=== PATIENT | female | born 1940 | race Caucasian/White ===

== ENCOUNTER 2023-03-28 20:40 | Inpatient (IN) | payer MEDICARE, BC ==
[2023-03-28] MEDS ORDERED: Acetaminophen 325 MG Tab PO PRN (22:04)
[2023-03-28] MEDS ORDERED: Morphine 2 MG/ML SYRINGE IVPUSH PRN (22:04)
[2023-03-28] MEDS ORDERED: LORazepam 2 MG/ML SDV IV PRN (22:04)
[2023-03-28] MEDS ORDERED: Naloxone 0.4 MG/ML SDV IVPUSH PRN (22:04)
[2023-03-28] MEDS ORDERED: Bisacodyl 5 MG Tab PO PRN (22:04)
[2023-03-28] MEDS ORDERED: Docusate Sodium 100 MG Cap PO PRN (22:04)
[2023-03-28] MEDS ORDERED: Sodium Chloride 0.9% 10 ML Syringe FLUSH PRN (22:04)
[2023-03-28] MEDS ORDERED: Promethazine 25 MG Tab PO PRN (22:04)
[2023-03-28] MEDS ORDERED: oxyCODONE 5 MG Tab PO PRN (22:04)
[2023-03-28] MEDS ORDERED: Pantoprazole 40 MG Vial IV SCH (22:15)
[2023-03-28] MEDS ORDERED: Metolazone 2.5 MG Tab PO PRN (22:18)
[2023-03-28] MEDS ORDERED: traMADol 50 MG Tab PO PRN (22:18)
[2023-03-28 22:52] LABS: APPEARANCE,URINE CLOUDY (CLEAR); BILIRUBIN,URINE NEGATIVE (NEGATIVE); COLOR,URINE YELLOW (YELLOW); GLUCOSE,URINE NEGATIVE (NEGATIVE); KETONES,URINE NEGATIVE (NEGATIVE); LEUKOCYTE ESTERASE,URINE LARGE (NEGATIVE); NITRITE,URINE NEGATIVE (NEGATIVE); OCCULT BLOOD,URINE SMALL (NEGATIVE); PROTEIN,URINE 30 mg/dL (NEGATIVE); UROBILINOGEN,URINE 0.2 EU/dL (0.2-1.0)
[2023-03-28 22:58] LABS: AMORPHOUS SEDIMENT,URINE NOT SEEN; BACTERIA,URINE MANY; EPITHELIAL CELLS,URINE MODERATE; MUCUS,URINE FEW; WBC,URINE >100 (0-5)
[2023-03-28] MEDS ORDERED: Potassium Chloride 20 MEQ Tab.ER PO ONE (23:17)
[2023-03-28] MEDS ORDERED: Enoxaparin 40 MG/0.4 ML Syringe SUBCUT ONE (23:30)
[2023-03-28] MEDS ORDERED: Nitroglycerin 0.4 MG Tab.SL SL PRN (23:30)
[2023-03-28] MEDS ORDERED: Nitroglycerin 0.4 MG Tab.SL ONE (23:32)
[2023-03-28] MEDS ORDERED: cefTRIAXone 1 GM in Sodium Chloride 0.9% 50 ML IV SCH (23:45)
[2023-03-28] MEDS: Melatonin 3 MG Tab PO SCH (23:58)
[2023-03-28] MEDS: hydrOXYzine HCl 10 MG Tab PO PRN (23:59)
[2023-03-29 05:41] LABS: BASOPHILS ABSOLUTE AUTO 0.04 K/uL (0.00-0.10); BASOPHILS PERCENT AUTO 0.5 % (0.1-1.3); EOSINOPHILS ABSOLUTE AUTO 0.53 K/uL (0.00-0.40); EOSINOPHILS PERCENT AUTO 6.7 % (0.0-5.4); HEMATOCRIT 31.8 % (34.3-46.0); HEMOGLOBIN 9.7 g/dL (11.2-15.5); IMMATURE GRAN ABSOLUTE AUTO 0.08 K/uL (0.00-0.23); LYMPHOCYTES ABSOLUTE AUTO 1.09 K/uL (0.8-3.3); LYMPHOCYTES PERCENT AUTO 13.8 % (11.4-47.7); MEAN CORPUSCULAR HEMOGLOBIN 26.6 pg (31.6-35.5); MEAN CORPUSCULAR HGB CONC 30.5 g/dL (31.6-35.5); MEAN CORPUSCULAR VOLUME 87.1 fL (81.4-99.0); MONOCYTES ABSOLUTE AUTO 0.63 K/uL (0.20-0.90); NEUTROPHILS ABSOLUTE AUTO 5.54 K/uL (1.0-7.6); PLATELET COUNT,PLT 186 K/uL (130-375); RED BLOOD CELL COUNT 3.65 M/uL (3.77-5.24); WHITE BLOOD CELL COUNT,WBC 7.9 K/uL (3.2-11.0)
[2023-03-29 06:04] LABS: CALCIUM 8.6 mg/dL (8.5-10.1); CREATININE 1.7 mg/dL (0.6-1.0); EST CRCL DRUG DOSING (CG) 24.3 mL/min; POTASSIUM,K 3.4 mmol/L (3.6-5.2)
[2023-03-29 06:06] LABS: ANION GAP 11.4 mmol/L (5.0-14.0)
[2023-03-29] MEDS ORDERED: Furosemide 40 MG Tab PO SCH (08:00)
[2023-03-29] MEDS: Losartan 25 MG Tab PO SCH (08:49)
[2023-03-29] MEDS: Spironolactone 25 MG Tab PO SCH (08:49)
[2023-03-29] MEDS: Calcium Carbonate/Vitamin D3 1500 MG-400 Units Tab PO SCH (08:49)
[2023-03-29] MEDS: Metoprolol Succinate 50 MG Tab.ER PO SCH (08:53)
[2023-03-29] MEDS: Cyanocobalamin (Vitamin B12) 1,000 MCG Tab PO SCH (08:53)
[2023-03-29] MEDS ORDERED: Potassium Chloride 20 MEQ Tab.ER PO ONE (09:00)
[2023-03-29] MEDS: Primidone 50 MG Tab PO SCH (09:44)
[2023-03-29] MEDS: hydrOXYzine HCl 10 MG Tab PO PRN (13:43)
[2023-03-29] MEDS: Bumetanide 2.5 MG/10 ML MDV IVPUSH SCH (18:27)
[2023-03-29] MEDS: Melatonin 3 MG Tab PO SCH (20:36)
[2023-03-29] MEDS: Enoxaparin 30 MG/0.3 ML Syringe SUBCUT SCH (20:36)
[2023-03-29] MEDS: cefTRIAXone 1 GM in Sodium Chloride 0.9% 50 ML IV SCH (20:36)
[2023-03-29] MEDS: Pantoprazole 40 MG Tab.CR PO SCH (20:36)
[2023-03-29] MEDS ORDERED: Pantoprazole 40 MG Vial IV SCH (21:00)
[2023-03-29] MEDS ORDERED: Enoxaparin 40 MG/0.4 ML Syringe SUBCUT SCH (21:00)
[2023-03-30] MEDS: hydrOXYzine HCl 10 MG Tab PO PRN ×2 (01:53→12:02)
[2023-03-30 05:21] LABS: CALCIUM 8.5 mg/dL (8.5-10.1); CREATININE 1.7 mg/dL (0.6-1.0); EST CRCL DRUG DOSING (CG) 24.3 mL/min; POTASSIUM,K 3.8 mmol/L (3.6-5.2)
[2023-03-30 05:22] LABS: ANION GAP 6.8 mmol/L (5.0-14.0)
[2023-03-30] MEDS: Bumetanide 2.5 MG/10 ML MDV IVPUSH SCH ×2 (06:38→17:37)
[2023-03-30] MEDS: Calcium Carbonate/Vitamin D3 1500 MG-400 Units Tab PO SCH (08:19)
[2023-03-30] MEDS: Cyanocobalamin (Vitamin B12) 1,000 MCG Tab PO SCH (08:19)
[2023-03-30] MEDS: Losartan 25 MG Tab PO SCH (08:19)
[2023-03-30] MEDS: Metoprolol Succinate 50 MG Tab.ER PO SCH (08:20)
[2023-03-30] MEDS: Spironolactone 25 MG Tab PO SCH ×2 (08:20→17:37)
[2023-03-30] MEDS: Primidone 50 MG Tab PO SCH (08:20)
[2023-03-30] MEDS ORDERED: Nystatin Topical Powder 15 GM Bottle TOP SCH (10:15)
[2023-03-30] MEDS: Nystatin Topical Powder 15 GM Bottle TOP SCH ×2 (11:17→20:24)
[2023-03-30] MEDS: Citalopram 10 MG Tab PO SCH (15:46)
[2023-03-30] MEDS ORDERED: Metoprolol Succinate 25 MG Tab.ER PO ONE (16:00)
[2023-03-30] MEDS: Melatonin 3 MG Tab PO SCH (20:23)
[2023-03-30] MEDS: Enoxaparin 30 MG/0.3 ML Syringe SUBCUT SCH (20:23)
[2023-03-30] MEDS: Pantoprazole 40 MG Tab.CR PO SCH (20:23)
[2023-03-30] MEDS: cefTRIAXone 1 GM in Sodium Chloride 0.9% 50 ML IV SCH (20:36)
[2023-03-30] MEDS ORDERED: Albuterol/Ipratropium 3.0-0.5 MG/3 ML Neb Soln NEB PRN (21:20)
[2023-03-31] MEDS: hydrOXYzine HCl 10 MG Tab PO PRN ×2 (01:49→14:52)
[2023-03-31] MEDS ORDERED: hydrOXYzine HCl 25 MG Tab PO STA (02:55)
[2023-03-31] MEDS: Bumetanide 2.5 MG/10 ML MDV IVPUSH SCH (06:04)
[2023-03-31] MEDS: Spironolactone 25 MG Tab PO SCH (06:04)
[2023-03-31 06:43] LABS: CALCIUM 8.7 mg/dL (8.5-10.1); CREATININE 1.7 mg/dL (0.6-1.0); EST CRCL DRUG DOSING (CG) 24.3 mL/min; POTASSIUM,K 3.9 mmol/L (3.6-5.2); T4 FREE 0.71 ng/dL (0.76-1.46); TSH ULTRASENSITIVE 3.382 uIU/mL (0.358-3.740)
[2023-03-31 06:44] LABS: ANION GAP 7.9 mmol/L (5.0-14.0)
[2023-03-31 06:45] LABS: IRON,FE 23 ug/dL (50-170); PERCENT FE SATURATION 7 % (20-55); TOTAL IRON BINDING CAPACITY 342 ug/dl (250-450)
[2023-03-31] MEDS: Primidone 50 MG Tab PO SCH (08:57)
[2023-03-31] MEDS: Metoprolol Succinate 25 MG Tab.ER PO SCH (08:58)
[2023-03-31] MEDS: Losartan 25 MG Tab PO SCH (08:58)
[2023-03-31] MEDS: Cyanocobalamin (Vitamin B12) 1,000 MCG Tab PO SCH (08:59)
[2023-03-31] MEDS: Calcium Carbonate/Vitamin D3 1500 MG-400 Units Tab PO SCH (09:00)
[2023-03-31] MEDS: Nystatin Topical Powder 15 GM Bottle TOP SCH ×2 (09:03→20:32)
[2023-03-31] MEDS: Citalopram 10 MG Tab PO SCH (09:08)
[2023-03-31] MEDS ORDERED: Levothyroxine 50 MCG Tab PO ONE (10:00)
[2023-03-31] MEDS ORDERED: Sodium Ferric Gluconate Cmplex 125 MG in Sodium Chloride 0.9% 100 ML IV ONE (10:30)
[2023-03-31] MEDS ORDERED: Metolazone 2.5 MG Tab PO ONE (14:00)
[2023-03-31] MEDS ORDERED: Bumetanide 1 MG/4 ML MDV IVPUSH ONE (14:30)
[2023-03-31] MEDS: Enoxaparin 30 MG/0.3 ML Syringe SUBCUT SCH (20:32)
[2023-03-31] MEDS: Melatonin 3 MG Tab PO SCH (20:32)
[2023-03-31] MEDS: Pantoprazole 40 MG Tab.CR PO SCH (20:33)
[2023-03-31] MEDS: cefTRIAXone 1 GM in Sodium Chloride 0.9% 50 ML IV SCH (20:33)
[2023-04-01 05:16] LABS: CALCIUM 8.5 mg/dL (8.5-10.1); CREATININE 1.6 mg/dL (0.6-1.0); EST CRCL DRUG DOSING (CG) 25.81 mL/min; POTASSIUM,K 3.5 mmol/L (3.6-5.2)
[2023-04-01 05:18] LABS: ANION GAP 9.5 mmol/L (5.0-14.0)
[2023-04-01] MEDS: Levothyroxine 50 MCG Tab PO SCH (08:05)
[2023-04-01] MEDS ORDERED: Potassium Chloride 20 MEQ Tab.ER PO ONE (09:00)
[2023-04-01] MEDS ORDERED: Metolazone 2.5 MG Tab PO ONE (09:00)
[2023-04-01] MEDS: Citalopram 10 MG Tab PO SCH (09:07)
[2023-04-01] MEDS: Primidone 50 MG Tab PO SCH (09:07)
[2023-04-01] MEDS: Calcium Carbonate/Vitamin D3 1500 MG-400 Units Tab PO SCH (09:07)
[2023-04-01] MEDS: Metoprolol Succinate 25 MG Tab.ER PO SCH (09:07)
[2023-04-01] MEDS: Nystatin Topical Powder 15 GM Bottle TOP SCH ×2 (09:08→20:28)
[2023-04-01] MEDS: Losartan 25 MG Tab PO SCH (09:08)
[2023-04-01] MEDS: Cyanocobalamin (Vitamin B12) 1,000 MCG Tab PO SCH (09:08)
[2023-04-01] MEDS: hydrOXYzine HCl 10 MG Tab PO PRN ×2 (09:19→20:33)
[2023-04-01] MEDS ORDERED: Bumetanide 1 MG/4 ML MDV IVPUSH ONE (09:30)
[2023-04-01] MEDS ORDERED: Sodium Ferric Gluconate Cmplex 125 MG in Sodium Chloride 0.9% 100 ML IV ONE (12:00)
[2023-04-01] MEDS: Bumetanide 2.5 MG/10 ML MDV IVPUSH SCH (18:08)
[2023-04-01] MEDS: Enoxaparin 30 MG/0.3 ML Syringe SUBCUT SCH (20:28)
[2023-04-01] MEDS: Melatonin 3 MG Tab PO SCH (20:28)
[2023-04-01] MEDS: cefTRIAXone 1 GM in Sodium Chloride 0.9% 50 ML IV SCH (20:28)
[2023-04-01] MEDS: Pantoprazole 40 MG Tab.CR PO SCH (20:28)
[2023-04-02] MEDS: Metolazone 2.5 MG Tab PO SCH (08:06)
[2023-04-02] MEDS: Levothyroxine 50 MCG Tab PO SCH (08:06)
[2023-04-02] MEDS: Bumetanide 2.5 MG/10 ML MDV IVPUSH SCH ×2 (08:11→17:49)
[2023-04-02] MEDS: Citalopram 10 MG Tab PO SCH (09:12)
[2023-04-02] MEDS: Nystatin Topical Powder 15 GM Bottle TOP SCH ×2 (09:12→19:59)
[2023-04-02] MEDS: Cyanocobalamin (Vitamin B12) 1,000 MCG Tab PO SCH (09:12)
[2023-04-02] MEDS: Calcium Carbonate/Vitamin D3 1500 MG-400 Units Tab PO SCH (09:13)
[2023-04-02] MEDS: Primidone 50 MG Tab PO SCH (09:13)
[2023-04-02] MEDS: Losartan 25 MG Tab PO SCH (09:15)
[2023-04-02] MEDS: Metoprolol Succinate 25 MG Tab.ER PO SCH (09:16)
[2023-04-02] MEDS: hydrOXYzine HCl 10 MG Tab PO PRN ×2 (09:59→20:00)
[2023-04-02] MEDS: Enoxaparin 30 MG/0.3 ML Syringe SUBCUT SCH (20:00)
[2023-04-02] MEDS: Melatonin 3 MG Tab PO SCH (20:01)
[2023-04-02] MEDS: Pantoprazole 40 MG Tab.CR PO SCH (20:01)
[2023-04-03 05:39] LABS: CALCIUM 9.1 mg/dL (8.5-10.1); CREATININE 1.6 mg/dL (0.6-1.0); EST CRCL DRUG DOSING (CG) 25.81 mL/min; POTASSIUM,K 3.3 mmol/L (3.6-5.2)
[2023-04-03 05:43] LABS: ANION GAP 10.3 mmol/L (5.0-14.0)
[2023-04-03] MEDS: Metoprolol Succinate 25 MG Tab.ER PO SCH (08:12)
[2023-04-03] MEDS: Primidone 50 MG Tab PO SCH (08:12)
[2023-04-03] MEDS: Cyanocobalamin (Vitamin B12) 1,000 MCG Tab PO SCH (08:12)
[2023-04-03] MEDS: Losartan 25 MG Tab PO SCH (08:13)
[2023-04-03] MEDS: Metolazone 2.5 MG Tab PO SCH (08:13)
[2023-04-03] MEDS: Levothyroxine 50 MCG Tab PO SCH (08:13)
[2023-04-03] MEDS: Citalopram 10 MG Tab PO SCH (08:14)
[2023-04-03] MEDS: Nystatin Topical Powder 15 GM Bottle TOP SCH ×2 (08:14→20:13)
[2023-04-03] MEDS: Calcium Carbonate/Vitamin D3 1500 MG-400 Units Tab PO SCH (08:15)
[2023-04-03] MEDS: Bumetanide 2.5 MG/10 ML MDV IVPUSH SCH ×2 (08:15→18:01)
[2023-04-03] MEDS ORDERED: Potassium Chloride 20 MEQ Tab.ER PO ONE (08:30)
[2023-04-03] MEDS: hydrOXYzine HCl 10 MG Tab PO PRN ×2 (10:04→20:16)
[2023-04-03] MEDS: Melatonin 3 MG Tab PO SCH (20:12)
[2023-04-03] MEDS: Enoxaparin 30 MG/0.3 ML Syringe SUBCUT SCH (20:12)
[2023-04-03] MEDS: Pantoprazole 40 MG Tab.CR PO SCH (20:13)
[2023-04-04] MEDS: Levothyroxine 50 MCG Tab PO SCH (08:00)
[2023-04-04] MEDS: Metolazone 2.5 MG Tab PO SCH (08:01)
[2023-04-04] MEDS: Nystatin Topical Powder 15 GM Bottle TOP SCH (08:03)
[2023-04-04] MEDS: Bumetanide 2.5 MG/10 ML MDV IVPUSH SCH (08:03)
[2023-04-04] MEDS: Metoprolol Succinate 25 MG Tab.ER PO SCH (08:03)
[2023-04-04] MEDS: Losartan 25 MG Tab PO SCH (08:04)
[2023-04-04] MEDS: Calcium Carbonate/Vitamin D3 1500 MG-400 Units Tab PO SCH (08:05)
[2023-04-04] MEDS: Cyanocobalamin (Vitamin B12) 1,000 MCG Tab PO SCH (08:05)
[2023-04-04] MEDS: Citalopram 10 MG Tab PO SCH (08:05)
[2023-04-04] MEDS: Primidone 50 MG Tab PO SCH (08:06)
[2023-04-04] MEDS ORDERED: Potassium Chloride 20 MEQ Tab.ER PO ONE (08:30)
[2023-04-04] MEDS: hydrOXYzine HCl 10 MG Tab PO PRN (12:12)
== END 2023-04-04 13:20 | disposition home health service (06) | DRG 291 ==
LOC: JP.MS 20:40
PROVIDERS: ADMIT Internal Medicine; ATTEND Hospitalist
DX: I11.0 Hypertensive heart disease with heart failure (principal); I50.43 Acute on chronic combined systolic (congestive) and diastolic (congestive) heart failure; N39.0 Urinary tract infection, site not specified; I48.20 Chronic atrial fibrillation, unspecified; E87.6 Hypokalemia; E78.5 Hyperlipidemia, unspecified; L29.8 Other pruritus; E03.9 Hypothyroidism, unspecified; R09.02 Hypoxemia; D50.9 Iron deficiency anemia, unspecified; F32.A Depression, unspecified; I25.10 Atherosclerotic heart disease of native coronary artery without angina pectoris; Z79.01 Long term (current) use of anticoagulants; Z88.1 Allergy status to other antibiotic agents; Z88.8 Allergy status to other drugs, medicaments and biological substances; Z79.1 Long term (current) use of non-steroidal anti-inflammatories (NSAID); Z79.82 Long term (current) use of aspirin; Z87.891 Personal history of nicotine dependence; Z95.2 Presence of prosthetic heart valve; Z79.890 Hormone replacement therapy
CPT/HCPCS: 36415; 71045; 71045-26; 80048; 81001; 82728; 83550; 83735; 83880; 84132; 84439; 84443; 84484; 85025; 87086; 93005; 94640; 97110-GP; 97116-GP; 97161-GP; 97165-GO; 97530-GP; A9270-GY; C9113; J0696; J1650; J2916; J3490; J7620